=== PATIENT | male | born 1980 | race Caucasian/White ===

== ENCOUNTER 2023-08-11 13:56 | Emergency (ER) | payer MEDICAID ==
[~2023-08-11] VITALS: Ht 188 cm; Wt 91.0 kg
[2023-08-11 14:43] VITALS: BP 124/81; PULSE 70; RESP 19; O2SAT 97
[2023-08-11] MEDS ORDERED: ibuprofen tablet 400 MG TABLET PO ONE (16:20)
[2023-08-11] MEDS ORDERED: IBUP-1986 PO (16:23)
[2023-08-11 16:55] VITALS: TEMP 98.6
== END 2023-08-11 16:57 | disposition home or self-care (01) ==
LOC: ER 13:58
DX: M25.461 Effusion, right knee (principal); M25.561 Pain in right knee; W19.XXXA Unspecified fall, initial encounter; Y93.89 Activity, other specified; Y92.89 Other specified places as the place of occurrence of the external cause; Y99.8 Other external cause status
CPT/HCPCS: 29530; 73564; 99284

== ENCOUNTER 2023-09-27 14:26 | Emergency (ER) | payer MEDICAID ==
[~2023-09-27] VITALS: Ht 188 cm; Wt 195.0 kg
[~2023-09-27 14:26] MED LIST: IBUP-1986 PO
[2023-09-27] MEDS ORDERED: TETanus/Pertussis (Acell)/Diphther VAC/PF (Tdap-Adult) 0.5ml syringe IMVAC ONE (14:35)
[2023-09-27] MEDS ORDERED: mupirocin 2% ointment 22GM TP ONE (15:20)
[2023-09-27] MEDS ORDERED: ketorolac trometh. 30mg/ml inj. IM ONE (15:20)
[2023-09-27] MEDS ORDERED: HYDROcodone/acetaminophen 5mg/325mg tablet PO ONE (15:20)
[2023-09-27] MEDS ORDERED: CEPH500C2 PO (15:28)
[2023-09-27] MEDS ORDERED: IBUP-1985 PO (15:29)
[2023-09-27] MEDS ORDERED: MUPI22OI30 TP (15:29)
[2023-09-27] MEDS ORDERED: LIDOcaine/epinephrine/tetracaine TOPICAL sol 3 ML syringe TOP ONE (15:30)
[2023-09-27 16:44] VITALS: BP 144/92; PULSE 82; RESP 20; TEMP 98.3; O2SAT 100
== END 2023-09-27 16:51 | disposition home or self-care (01) ==
LOC: ER 14:27
DX: S61.212A Laceration without foreign body of right middle finger without damage to nail, initial encounter (principal); X58.XXXA Exposure to other specified factors, initial encounter; Y93.89 Activity, other specified; Y92.89 Other specified places as the place of occurrence of the external cause; Y99.8 Other external cause status
CPT/HCPCS: 73140; 90471; 90715; 96372; 99284; A6258; J1885; J3490